=== PATIENT | male | born 1945 | race Caucasian/White ===

== ENCOUNTER → 2024-08-01 08:35 | Outpatient (REF) | payer MEDICARE, OTHER, SELFPAY | LOC: RCS 08:35 | PROVIDERS: ATTENDING PHYSICIAN Student in an Organized Health Care Education/Training Program; FAMILY PHYSICIAN Internal Medicine | DX: I63.89 Other cerebral infarction (principal); I48.19 Other persistent atrial fibrillation | CPT/HCPCS: 93306 ==